=== PATIENT | female | born 1980 | race Caucasian/White ===

== ENCOUNTER 2018-12-29 19:38 | Emergency (ER) | payer SELFPAY ==
[~2018-12-29] VITALS: Ht 160 cm; Wt 64.4 kg
[~2018-12-29 19:38] MED LIST: AZIT250T PO; AZIT500T2 PO; CEPH250T PO; DOXY100T19 PO; GABA-488 PO; METR500T PO; PRD20T PO; QUET100T PO
--- NOTE | 2018-12-29 19:40 | NUR ---
Note kev in EDM - 12/29/18 at 1941 by [id number] LUNG SOUNDS CLEAR BILATERAL. NO RESPIRATORY DISTRESS PRESENT. PATIENT IS SMILING AND COOING AT PARENTS AND RN. FAINT STRIDOR PRESENT IN UPPER AIRWAY.
--- OUTSIDE RECORDS SUMMARY | 2018-12-29 19:50 | XMS REPORT ---
Author Author Sarah Carranza [facility] Address [address] [address] Care Team Providers Care Ferry Terminal Agent Name Role Phone Sarah Carranza PCP Maryan Norman PCP Suzy Mcmahon PCP Assessments SatNov 14 08:00:00 EDT 2018: ALTHOUGH CLIENT WAS MANIC IN HER PRESENTATION SHE WAS COOPERATIVE WITH INTAKE PROCESS. Health Concerns No Known Health Concerns Allergies No Known Allergy Information Encounters Program Name Primary Diagnosis Admission Date/Time Discharge Date/Time PRE ADMIT HUSSEIN SatSep 02 09:20:00 EST 2014 [place] Sep 05 02:01:00 EST 2014 ADMISSION PROGRAM Bipolar disorder, current episode manic without psychotic features, moderate SatNov 14 14:01:00 EDT 2017Dec 24 11:08:00 EDT 2017 Immunizations No Known Immunizations Lab Results No Known Laboratory Results Medical Equipment No Known Medical Equipment Medications No Known Medication Information Treatment Plan Interventions Initial Psychiatric Evaluation, Ongoing medication monitoring and management, Case Conference with multidisciplinary members of the MHC team as indicated, and/or Collaboration and coordination with outside medical providers as indicated by providing the following services: 29439 interactive complexity 62459 psychiatric diagnostic eval w/ meds 88907 30 min psychotherapy add-on 20371 45 [place] [address] 60 min psychotherapy add-on 92425 med injection 29454 New Patient E&M (level 1) 99870 New Patient E&M (level 2) 44394 New Patient E&M (level 3) 47547 New patient E&M (level 4) 07634 New Patient E&M (level 5) 25557 Established Patient E&M (level 1) 81721 Established Patient E&M (level 2) 21148 Established Patient E&M (level 3) 55877 Established Patient E&M (level 4) 50763 Established Patient E&M (level 5) 9935x prolonged service code 19359 case conference w/o clt & fam w/ MD 41800 case conference w/o clt w/ MD H0038 Peer Support Karen ADULT SUPPORTIVE SERVICES BUNDLE - Provide the following services 1- 3 times each week: + H0038 Peer Support Individual + [id number] Peer Support Group + H2017 Psychosocial Rehab Individual + [id number] Psychosocial Adult Group + T1017 TCM - Targeted Case Management + [id number] Attendant Care Non Waiver ADULT CASE MANAGEMENT SERVICE BUNDLE - Provide the following services 1-3 times each week: + [phone] Case Conf w/Clt nn-Physician + [id number] Case Conf w/o clt + family w/MD + 28403 Case Conf no Clt, no MD, w/QMHP + [id number] CPST Adult + [id number] Strength Based Case Mgmt + T1017 TCM - Targeted Case Management Engage with treatment team to build rapport. Learn and practice coping skills to reduce symptoms and improve functioning. The following Services will be utilized 1 - 3 times until goal is reached: Problems Active Concerns* Mental health problem* Code: [id number] * Start Date: SatNov 14 08:00:00 EDT 2017 * Encounter for medication review* Code: [id number] * Start Date: SatNov 14 08:00:00 EDT 2017 Procedures No Known Procedures Social History Social History Observation Description Date Smoking Status Current Every Day Smoker SatNov 14 08:00: 00 EDT 2017 Sex Female SatMay 12 08:00:00 EDT 1979 Vital Signs No Known Vitals
--- OUTSIDE RECORDS SUMMARY | 2018-12-29 19:51 | XMS REPORT ---
Author Author SHON GUZMAN Organization [employer] Address Unknown Phone Unavailable Care Team Providers Care Gang Pusher Name Role Phone SHON GUZMAN CP Unavailable Allergies No Known Allergies Problems Problem Type Condition Code Onset Dates Condition Status Problem Skin lesions L98.9 Active Problem History of drug use F19.21 Active Problem History of ovarian cyst Z87.42 Active Problem Surveillance of implantable subdermal contraceptive Z30.49 Active Assessment Tinea corporis B35.4 Active Medications Medication Code System Code Instructions Start Date End Date Status Dosage Nystatin [facility] [address]-22 202511 UNIT/GM Externally Twice a day Aug 24, 2015 Sep 16, 2015 1 application to affected area Results No Known Results Summary Purpose eClinicalWorks Submission
--- OUTSIDE RECORDS SUMMARY | 2018-12-29 19:51 | XMS REPORT ---
Author Author SHON GUZMAN Organization [employer] Address Unknown Phone Unavailable Care Team Providers Care Lacing String Cutter Name Role Phone SHON GUZMAN CP Unavailable Allergies, Adverse Reactions, Alerts Substance Reaction Event Type Erythromycin Info Not Available Drug Allergy Codeine Phosphate Info Not Available Drug Allergy Latex Info Not Available Non Drug Allergy Problems Problem Type Condition Code Onset Dates Condition Status Problem Skin lesions L98.9 Active Problem History of drug use F19.21 Active Problem History of ovarian cyst Z87.42 Active Assessment Tinea corporis B35.4 Active Assessment Head injury, closed, with concussion, with loss of consciousness of 30 minutes or less, initial encounter S06.0X1A Active Problem Surveillance of implantable subdermal contraceptive Z30.49 Active Assessment Anxiety F41.9 Active Medications Medication Code System Code Instructions Start Date End Date Status Dosage Implanon NDC 0 not defined Nystatin NDC [address]-14 440072 UNIT/GM Externally Twice a day Aug 24, 2015 Sep 03, 2015 1 application to affected area Procedures Procedure Coding System Code Date Office Visit, Est Pt., Level 3 CPT-4 29504 Aug 24, 2015 Vital Signs Date/Time: Aug 24, 2015 Temperature 99.0 F Weight 135.0 lbs Height 63 in BMI 23.91 Index Blood Pressure Diastolic 76 mmHg Blood Pressure Systolic 126 mmHg Cardiac Monitoring Heart Rate 96 bpm Results No Known Results Summary Purpose eClinicalWorks Submission
--- OUTSIDE RECORDS SUMMARY | 2018-12-29 19:51 | XMS REPORT ---
Author Author CACHORRO GTZ [facility] eClinical[employer] Address Unknown Phone Unavailable Care Team Providers Care Service Writer Name Role Phone CACHORRO GTZ CP Unavailable Allergies, Adverse Reactions, Alerts Substance Reaction Event Type Erythromycin Info Not Available Drug Allergy Codeine Phosphate Info Not Available Drug Allergy Latex Info Not Available Non Drug Allergy Problems Problem Type Condition Code Onset Dates Condition Status Problem Skin lesions L98.9 Active Problem History of drug use F19.21 Active Problem History of ovarian cyst Z87.42 Active Assessment Body aches R52 Active Assessment Tobacco dependence F17.200 Active Problem Surveillance of implantable subdermal contraceptive Z30.49 Active Assessment Cough R05 Active Medications Medication Code System Code Instructions Start Date End Date Status Dosage Tessalon Perles [facility] [address]-67 200 mg Orally Three times a day prn cough Sep 13, 2015 Sep 20, 2015 1 capsule Ibuprofen NDC 0 not defined Zofran ODT [facility] [address]-75 4 MG Orally every 8 hrs Sep 09, 2015 1 tablet on the tongue and allow to dissolve Nystatin [facility] [address]-18 935926 UNIT/GM Externally Twice a day Aug 24, 2015 Sep 16, 2015 1 application to affected area Seroquel [facility] [address]-81 50 MG Orally Once a day 1 tablet at bedtime Tums [facility] [address]-06 500 MG Orally Four times a day 1 tablet Doxycycline Hyclate [facility] [address]-25 100 MG Orally every 12 hrs Sep 13, 2015 Sep 23, 2015 1 capsule Implanon ND 0 not defined Procedures Procedure Coding System Code Date INFLUENZA ASSAY W/OPTIC CPT-4 92790 Sep 13, 2015 Office Visit, Est Pt., Level 3 CPT-4 27064 Sep 13, 2015 Vital Signs Date/Time: Sep 13, 2015 Temperature 98.9 F Weight 139.2 lbs Height 63 in BMI 24.66 Index Blood Pressure Diastolic 78 mmHg Blood Pressure Systolic 108 mmHg Cardiac Monitoring Heart Rate 88 bpm Results Name Result Date Reference Range Unit Abnormality Flag INFLUENZA A & B (IN HOUSE) ----Exp date [id number] ----INFLUENZA A negative [id number] ----INFLUENZA B negative [id number] ----Control + [id number] ----Lot # [id number] Summary Purpose eClinicalWorks Submission
--- OUTSIDE RECORDS SUMMARY | 2018-12-29 19:51 | XMS REPORT | Continuity of Care Document ---
Author Author [facility] Organization [facility] Address [address] [place] [address] Phone Unavailable Care Team Providers Care Industrial Commercial Groundskeeper Name Role Phone Physician, No Family PCP Unavailable Insurance Providers Payer Name Policy Number Subscriber Name Relationship [employer] [id number] Jaylyn Sheriff Self / Same As Patient Advance Directives Directive Response Recorded Date/Time Do You Have A Living Will? No 04/17/15 6:30pm Do You Have a DPOA? No 04/17/15 6:30pm Problems No known problems or medical conditions. Medications Medication Dose Route Sig Days/Qty Instructions Order Date Discontinued Date Status Oxycodone HCl/Acetaminophen 1-2 Tablet PO EVERY 4-6 HOURS NEEDED PRN PAIN 15 Qty 04/17/15 Active Ondansetron Hcl 4 Mg PO EVERY 4-6 HOURS NEEDED PRN 14 Qty 04/17/15 Active Social History Social History Problem Response Recorded Date/Time History of Street Drugs? No 04/17/2015 6:32pm Hospital Discharge Instructions No hospital discharge instructions. Plan of Care Discharge Date 04/17/15 10:49pm Disposition HOME, ROUTINE DIS/ASST LIVING Condition at Discharge Stable & Improved Prescriptions See Medications Section Functional Status No functional status results. Allergies, Adverse Reactions, Alerts Allergen Type Severity Reaction Status Last Updated Codeine Allergy Unknown Active 04/17/15 Erythromycin base Allergy Unknown Active 04/17/15 Immunizations No immunization records. Vital Signs Acute Vital Signs Vital Response Date/Time Height (Feet) 5 ft Height (Inches) 3.00 inches Weight (Pounds w/decimal) 132 lbs Temperature (Fahrenheit) 99.0 degrees F (97.6 - 99.5) Pulse Pulse Rate 83 bpm (60 - 100) Respiratory Rate 20 bpm (10 - 24) Oxygen Saturation O2 Sat by Pulse Oximetry 97 % (93 - 100) Blood Pressure 146/86 mm Hg Blood Pressure Mean 105 mm Hg Height 5 ft 3 in Weight 131 lb Body Mass Index 23.0 kg/m^2 Results Test Source Date Result Interp. Ref. Range Comments Trichomonas (Wet Prep) April 17, 2015 8:13pm Negative NEGATIVE Specimen available? Y Clue Cells (Wet Prep) April 17, 2015 8:13pm Positive H NEGATIVE Specimen available? Y Vaginal Yeast (Wet Prep) April 17, 2015 8:13pm Negative NEGATIVE Specimen available? Y Urine Crystals April 17, 2015 7:05pm None seen NONE SEEN Specimen available? Y Urine Trichomonas April 17, 2015 7:05pm None seen /HPF NONE SEEN Specimen available? Y Urine Yeast April 17, 2015 7:05pm None seen /HPF NONE SEEN Specimen available? Y Urine Amorphous Sediment April 17, 2015 7:05pm None seen /HPF NONE SEEN Specimen available? Y Urine Mucus April 17, 2015 7:05pm Many /LPF NONE Specimen available ? Y Urine Bacteria April 17, 2015 7:05pm Few /HPF H NONE SEEN Specimen available? Y Urine Red Blood Cell Casts April 17, 2015 7:05pm None seen /LPF NONE SEEN Specimen available? Y Urine White Blood Cell Casts April 17, 2015 7:05pm None seen /LPF NONE SEEN Specimen available? Y Urine Waxy Casts April 17, 2015 7:05pm None seen /LPF NONE SEEN Specimen available? Y Urine Granular Casts April 17, 2015 7:05pm None seen /LPF NONE SEEN Specimen available? Y Urine Hyaline Casts April 17, 2015 7:05pm None seen /LPF NONE-0-1 Specimen available? Y Urine Epithelial Cells April 17, 2015 7:05pm 0-5 /HPF NONE-<=5/HP Specimen available? Y Urine RBC April 17, 2015 7:05pm 0-2 /HPF NONE-<=2 Specimen available ? Y Urine WBC April 17, 2015 7:05pm 0-5 /HPF NONE-<=5 Specimen available ? Y Urine Urobilinogen April 17, 2015 7:05pm 0.2 mg/dL 0.2-1.0 Specimen available? Y Urine Bilirubin April 17, 2015 7:05pm Negative NEGATIVE Specimen available? Y Urine Leukocyte Esterase April 17, 2015 7:05pm Negative NEGATIVE Specimen available? Y Urine Nitrite April 17, 2015 7:05pm Negative NEGATIVE Specimen available? Y Urine Blood April 17, 2015 7:05pm 1+ H NEGATIVE Specimen available? Y Urine Ketones April 17, 2015 7:05pm Negative mg/dL NEGATIVE Specimen available? Y Urine Glucose April 17, 2015 7:05pm Negative mg/dL NEGATIVE Specimen available? Y Urine Protein April 17, 2015 7:05pm Negative mg/dL NEGATIVE Specimen available? Y Urine pH April 17, 2015 7:05pm 6.0 5.0-8.0 Specimen available? Y Urine Specific [place] April 17, 2015 7:05pm 1.020 Reference Range <=1.005-1.035 Urine Appearance April 17, 2015 7:05pm Clear CLEAR Specimen available? Y Urine Color April 17, 2015 7:05pm Yellow YELLOW Specimen available? Y Bedside Urine Test QC April 17, 2015 7:10pm acceptable () [id number] TESTING PERFORMED BY PERSONNEL OF:[facility] [address] [place] [address] Bedside Urine HCG, Qualitative April 17, 2015 7:10pm Negative () AST/ALT Ratio April 17, 2015 6:36pm 0.821 N 0.10-40.00 XTRA RNG, BLUE Alanine Aminotransferase (ALT/SGPT) April 17, 2015 6:36pm 28 U/L N 6- 29 XTRA RNG, BLUE Aspartate Amino Transf (AST/SGOT) April 17, 2015 6:36pm 23 U/L N 10-30 XTRA RNG, BLUE Alkaline Phosphatase April 17, 2015 6:36pm 90 U/L N 33-115 XTRA RNG, BLUE Lipase April 17, 2015 6:36pm 79 IU/L H 7-60 XTRA RNG, BLUE Total Bilirubin April 17, 2015 6:36pm < 0.2 mg/dL L 0.2-1.2 XTRA RNG, BLUE Corrected Calcium April 17, 2015 6:36pm 9.4 mg/dL N 8.6-10.2-calc XTRA RNG, BLUE Calcium Level April 17, 2015 6:36pm 9.2 mg/dL N 8.6-10.2 XTRA RNG, BLUE Globulin April 17, 2015 6:36pm 2.8 g/dL N 1.9-3.7 XTRA RNG, BLUE Albumin April 17, 2015 6:36pm 4.1 g/dL N 3.6-5.1 XTRA RNG, BLUE Total Protein April 17, 2015 6:36pm 6.9 g/dL N 6.1-8.1 XTRA RNG, BLUE Calculated Osmolality April 17, 2015 6:36pm 289 mOSM/kg N 280-300 XTRA RNG, BLUE Estimated GFR (Cockcroft-Gault) April 17, 2015 6:36pm 78.63 ml/min > 30 Actual body weight used for calculation. BUN/Creatinine Ratio April 17, 2015 6:36pm 16 N 7-25 XTRA RNG, BLUE Estimated GFR () April 17, 2015 6:36pm 90 N >60 Units : mL/min/1.73m2) Estimated GFR (Non- April 17, 2015 6:36pm 77 N >60 Units: mL/min/1.73m2) Creatinine April 17, 2015 6:36pm 0.97 mg/dL N 0.50-1.10 XTRA RNG, BLUE Blood Urea Nitrogen April 17, 2015 6:36pm 16 mg/dL N 7-25 XTRA RNG, BLUE Glucose Level April 17, 2015 6:36pm 102 mg/dL H 65-99 XTRA RNG, BLUE Anion Gap April 17, 2015 6:36pm 14 N 7-17 XTRA RNG, BLUE Carbon Dioxide Level April 17, 2015 6:36pm 23.9 mmol/L N 19.0-30.0 XTRA RNG, BLUE Chloride Level April 17, 2015 6:36pm 101 mmol/L N 98-110 XTRA RNG, BLUE Potassium Level April 17, 2015 6:36pm 4.2 mmol/L N 3.5-5.0 XTRA RNG, BLUE Sodium Level April 17, 2015 6:36pm 139 mmol/L N 135-146 XTRA RNG, BLUE Basophils # April 17, 2015 6:36pm 0.03 1000/uL N 0.00-0.20 XTRA RNG, BLUE Eosinophils # April 17, 2015 6:36pm 0.16 1000/uL N 0.01-0.50 XTRA RNG , BLUE Monocytes # April 17, 2015 6:36pm 0.48 1000/uL N 0.20-0.95 XTRA RNG, BLUE Lymphocytes # April 17, 2015 6:36pm 1.95 1000/uL N 0.85-3.90 XTRA RNG , BLUE Granulocytes # April 17, 2015 6:36pm 3.35 1000/uL N 1.50-7.80 XTRA RNG , BLUE Basophils % April 17, 2015 6:36pm 0.5 % XTRA RNG, BLUE Eosinophils % April 17, 2015 6:36pm 2.7 % XTRA RNG, BLUE Monocytes % April 17, 2015 6:36pm 8.0 % XTRA RNG, BLUE Lymphocytes % April 17, 2015 6:36pm 32.7 % XTRA RNG, BLUE Granulocytes (%) April 17, 2015 6:36pm 56.1 % XTRA RNG, BLUE Mean Platelet Volume April 17, 2015 6:36pm 9.6 fL N 8.7-11.9 XTRA RNG , BLUE Platelet Count April 17, 2015 6:36pm 234 1000/cmm N 140-400 XTRA RNG, BLUE Red Cell Distribution Width April 17, 2015 6:36pm 14.8 % N 11.0-15.0 XTRA RNG, BLUE Mean Corpuscular Hemoglobin Concent April 17, 2015 6:36pm 34 g/dL N 32- 36 XTRA RNG, BLUE Mean Corpuscular Hemoglobin April 17, 2015 6:36pm 28 pg N 27-33 XTRA RNG, BLUE Mean Corpuscular Volume April 17, 2015 6:36pm 84 fL N 80-100 XTRA RNG , BLUE Hematocrit April 17, 2015 6:36pm 34.7 % L 35.0-45.0 XTRA RNG, BLUE Hemoglobin April 17, 2015 6:36pm 11.7 g/dL N 11.7-15.5 XTRA RNG, BLUE Red Blood Count April 17, 2015 6:36pm 4.12 MIL/uL N 3.80-5.10 XTRA RNG , BLUE White Blood Count April 17, 2015 6:36pm 6.0 1000/cmm N 3.8-10.8 XTRA RNG, JAZZ Procedures Procedure Status Date Provider(s) US pelvis completed 04/17/15 Luis Carlos Mae MD Encounters Encounter Location Date/Time Departed Emergency Room [facility] 04/17/15 6:30pm
--- OUTSIDE RECORDS SUMMARY | 2018-12-29 19:51 | XMS REPORT ---
Author Author JASMYNE PRUETT [facility] eClinicalWorks Address Unknown Phone Unavailable Care Team Providers Care Supervisor Electronic Coils Name Role Phone JASMYNE PRUETT CP Unavailable Allergies, Adverse Reactions, Alerts Substance Reaction Event Type Erythromycin Info Not Available Drug Allergy Codeine Phosphate Info Not Available Drug Allergy Latex Info Not Available Non Drug Allergy Problems Problem Type Condition Code Onset Dates Condition Status Problem Skin lesions L98.9 Active Problem History of drug use F19.21 Active Problem History of ovarian cyst Z87.42 Active Assessment Acute gastritis without bleeding K29.00 Active Problem Surveillance of implantable subdermal contraceptive Z30.49 Active Assessment Pharyngitis J02.9 Active Medications Medication Code System Code Instructions Start Date End Date Status Dosage Tums [facility] [address]-86 500 MG Orally Four times a day 1 tablet Seroquel [facility] [address]-40 50 MG Orally Once a day 1 tablet at bedtime Nystatin [facility] [address]-95 072663 UNIT/GM Externally Twice a day Aug 24, 2015 Sep 16, 2015 1 application to affected area Promethazine HCl [facility] [address]-01 12.5 MG Orally every 6 hrs Sep 08, 2015 Sep 13, 2015 1 tablet as needed Implanon [facility] 0 not defined Procedures Procedure Coding System Code Date PHENERGAN (IM) 12.5 MG (25 MG/ML) CPT-4 J2550 Sep 08, 2015 THER/PROPH/DIAG INJ, SC/IM CPT-4 96877 Sep 08, 2015 STREP A ASSAY W/OPTIC CPT-4 98567 Sep 08, 2015 Office Visit, Est Pt., Level 3 CPT-4 19409 Sep 08, 2015 Vital Signs Date/Time: Sep 08, 2015 Temperature 98.6 F Weight 133.8 lbs Height 63 in BMI 23.70 Index Blood Pressure Diastolic 70 mmHg Blood Pressure Systolic 120 mmHg Cardiac Monitoring Heart Rate 98 bpm Results Name Result Date Reference Range Unit Abnormality Flag STREP A (IN HOUSE) ----STREP A negative [id number] ----Control + [id number] ----Lot # [id number] ----Exp date [id number] Summary Purpose eClinicalWorks Submission
--- OUTSIDE RECORDS SUMMARY | 2018-12-29 19:51 | XMS REPORT ---
Author Author KYRA ARELLANO [facility] Address [address] [address] Care Team Providers Care Paint Line Supervisor Name Role Phone KYRA ARELLANO Unavailable BLAKEAUDRA MEI Unavailable VALENTIN CHADWICK Unavailable JAI ROC Unavailable Problems Problem SNOMED Onset Date Resolved Date Status Mental health problem 594234979 Active Drug therapy finding [id number] Active Allergies, Adverse Reactions NA Care Plan Goal Instructions Client will be functioning more independently with supports and have a life worth living. Engage with treatment team to build rapport. Learn and practice coping skills to reduce symptoms and improve functioning. The following Services will be utilized 1 - 3 times until goal is reached: Improve and maintain functioning through medical psychiatric services. Initial Psychiatric Evaluation, Ongoing medication monitoring and management , Case Conference with multidisciplinary members of the MHC team as indicated, and/or Collaboration and coordination with outside medical providers as indicated by providing the following services: 34544 interactive complexity 50810 psychiatric diagnostic eval w/ meds 40754 30 min psychotherapy add-on 23585 45 [place] [address] 60 min psychotherapy add-on 70842 med injection 90078 New Patient E&M (level 1) 73843 New Patient E&M (level 2) 66267 New Patient E&M (level 3) 49640 New patient E&M (level 4) 90745 New Patient E&M (level 5) 09636 Established Patient E&M (level 1) 26705 Established Patient E&M (level 2) 30914 Established Patient E&M (level 3) 48822 Established Patient E&M (level 4) 49099 Established Patient E&M (level 5 ) 9935x prolonged service code 95154 case conference w/o clt & fam w/ 77480 case conference w/o clt w/ H0038 Peer Support Karen Medications NA Lab Results NA Encounters Date Time Service Code Provider 09:20:00 am KYRA ADAME 01:01:00 pm AUDRA MEI 11:23:00 am AUDRA MEI Family History Functional Status NA Immunizations NA Vital Signs NA Social History Date Smoking Status SNOMED Code Current Every Day Smoker [id number] Hospital Discharge Instructions NA Instructions NA Procedures Date Procedure Code Type Code Provider Purpose Electronic Copy
--- OUTSIDE RECORDS SUMMARY | 2018-12-29 19:51 | XMS REPORT ---
Author Author JASMYNE PRUETT Organization eClinicalWorks Address Unknown Phone Unavailable Care Team Providers Care Pattern Generator Operator Name Role Phone JASMYNE PRUETT Unavailable Allergies No Known Allergies Problems Problem Type Condition Code Onset Dates Condition Status Problem Skin lesions L98.9 Active Problem History of drug use F19.21 Active Problem History of ovarian cyst Z87.42 Active Problem Surveillance of implantable subdermal contraceptive Z30.49 Active Medications Medication Code System Code Instructions Start Date End Date Status Dosage Zofran ODT [facility] [address]-42 4 MG Orally every 8 hrs Sep 09, 2015 1 tablet on the tongue and allow to dissolve Results No Known Results Summary Purpose eClinicalWorks Submission
--- OUTSIDE RECORDS SUMMARY | 2018-12-29 19:51 | XMS REPORT ---
Author Author JAUN BARRIOS Organization eClinicalWorks Address Unknown Phone Unavailable Care Team Providers Care Freezing Machine Operator Name Role Phone JAUN BARRIOS CP Unavailable Allergies, Adverse Reactions, Alerts Substance [...] of implantable subdermal contraceptive Z30.49 Active Assessment Gastritis K29.70 Active Medications Medication Code System Code Instructions Start Date End Date Status Dosage Implanon NDC 0 not defined Protonix [facility] [address]-24 40 MG Orally Once a day Sep 26, 2015 1 tablet Ibuprofen NDC 0 not defined Seroquel [facility] [address]-98 50 MG Orally Once a day 1 tablet at bedtime Tums [facility] [address]-01 500 MG Orally Four times a day 1 tablet Procedures Procedure Coding System Code Date Office Visit, Est Pt., Level 3 CPT-4 80486 Sep 26, 2015 Vital Signs Date/Time: Sep 26, 2015 Temperature 97.8 F Weight 141.0 lbs Height 63 in BMI 24.97 Index Blood Pressure Diastolic 100 mmHg Blood Pressure Systolic 150 mmHg Cardiac Monitoring Heart Rate 88 bpm Results No Known Results Summary Purpose eClinicalWorks Submission
--- OUTSIDE RECORDS SUMMARY | 2018-12-29 19:51 | XMS REPORT | Continuity of Care Document ---
Author Organization Unknown Address Unknown Allergies Active Description Code Type Severity Reaction Onset Reported/Identified Relationship to Patient Clinical Status Yes Penicillins 476 Unknown N/A 09/02/1999 Yes ENVIRONMENTAL ENVIRONMENTAL Mild N/A 12/14/2013 Yes codeine [id number] Drug Allergy Unknown N/A 04/17/2015 Yes erythromycin base [id number] Drug Allergy Unknown N/A 04/17/2015 Medications There is no data. Problems Date Dx Coded Attending Type Code Diagnosis Diagnosed By 12/14/2013 BOYD ARITA SOFTWARE PROJECT LEAD Ot 616.10 12/14/2013 BOYD ARITA SOFTWARE PROJECT LEAD Ot 640.03 12/14/2013 BOYD ARITA SOFTWARE PROJECT LEAD Ot 646.63 12/14/2013 BOYD ARITA SOFTWARE PROJECT LEAD Ot 649.53 05/24/2015 JOSUÉ GONCALVES S 305.1 TOBACCO USE DISORDER 05/24/2015 JOSUÉ GONCALVES P 789.00 ABDOMINAL PAIN, UNSPECIFIED SITE 09/20/2015 SHON GUZMAN SOFTWARE PROJECT LEAD Ot S06.0X1A 09/20/2015 SHON GUZMAN SOFTWARE PROJECT LEAD Ot X58.XXXA 09/20/2015 SHON GUZMAN SOFTWARE PROJECT LEAD Ot Y99.8 Procedures There is no data. Results There is no data. Encounters ACCT No. Visit Date/Time Discharge Status Pt. Type Provider Facility Loc./Unit Complaint [id number] 05/07/2015 11:48:00 ACT Unknown JOSUÉ GONCALVES [facility] NSER VAGINAL BLEED [id number] 11/02/2015 17:09:00 11/02/2015 20:06:00 DIS Emergency BOYD ARITA APRN [facility] ER [id number] 09/06/2015 13:20:00 09/06/2015 23:59:59 CLS Outpatient SHON GUZMAN APRN [facility] RAD [id number] 12/14/2013 19:21:00 12/14/2013 21:51:00 DIS Emergency BOYD ARITA APRN [facility] ER [id number] 04/25/2015 19:07:00 04/25/2015 23:59:59 CLS Outpatient Faizan, [facility] [id number] 04/17/2015 18:30:00 04/17/2015 22:49:00 DIS Emergency Tu HUERTA, [facility] ER
--- OUTSIDE RECORDS SUMMARY | 2018-12-29 19:51 | XMS REPORT ---
Author Author DEON AVALOS [facility] eClinical[employer] Address Unknown Phone Unavailable Care Team Providers Care Rn Iv Therapy Name Role Phone DEON AVALOS CP Unavailable Allergies, Adverse Reactions, Alerts Substance Reaction Event Type Erythromycin Info Not Available Drug Allergy Codeine Phosphate Info Not Available Drug Allergy Latex Info Not Available Non Drug Allergy Problems Problem Type Condition Code Onset Dates Condition Status Assessment Unprotected sexual intercourse Z72.51 Active Assessment Skin lesions L98.9 Active Assessment History of drug use F19.21 Active Assessment H/O nipple discharge Z87.898 Active Assessment Surveillance of implantable subdermal contraceptive Z30.49 Active Problem Skin lesions L98.9 Active Problem History of drug use F19.21 Active Problem History of ovarian cyst Z87.42 Active Assessment Routine screening for STI (sexually transmitted infection) Z11.3 Active Assessment History of ovarian cyst Z87.42 Active Problem Surveillance of implantable subdermal contraceptive Z30.49 Active Assessment Irregular menses N92.6 Active Medications Medication Code System Code Instructions Start Date End Date Status Dosage Implanon NDC 0 not defined Procedures Procedure Coding System Code Date TRICHOMONAS ASSAY W/OPTIC CPT-4 76538 Aug 24, 2015 CULTURE, BACTERIA, OTHER CPT-4 81471 Aug 24, 2015 No Charge CPT-4 88109 Aug 24, 2015 COMPLETE CBC W/AUTO DIFF WBC CPT-4 02964 Aug 24, 2015 URINE TEST CPT-4 51029 Aug 24, 2015 Office Visit, New Pt., Level 4 CPT-4 04000 Aug 24, 2015 Vital Signs Date/Time: Aug 24, 2015 Temperature 99.0 F Weight 135.0 lbs Height 63 in BMI 23.91 Index Blood Pressure Diastolic 78 mmHg Blood Pressure Systolic 128 mmHg Cardiac Monitoring Heart Rate 96 bpm Results Name Result Date Reference Range Unit Abnormality Flag TEST, URINE (IN HOUSE) ----RESULTS negative [id number] ----Lot # [id number] ----Control + [id number] ----Exp date [id number] Summary Purpose eClinicalWorks Submission
[2018-12-29] MEDS ORDERED: hydrOXYzine (VISTARIL) 25 MG capsule/tablet PO ONE (20:15)
[2018-12-29 20:29] LABS: BASOPHILS % (AUTO) 0 % (0-10); EOSINOPHILS # (AUTO) 0.2 10^3/uL (0.0-0.3); EOSINOPHILS % (AUTO) 3 % (0-10); HEMATOCRIT 41 % (35-52); HEMOGLOBIN 13.7 G/DL (11.5-16.0); LYMPHOCYTES # (AUTO) 2.5 X 10^3 (1.0-4.0); LYMPHOCYTES % (AUTO) 34 % (12-44); MEAN CORPUSCULAR HEMOGLOBIN 29 PG (25-34); MEAN CORPUSCULAR HGB CONC 33 G/DL (32-36); MEAN CORPUSCULAR VOLUME 88 FL (80-99); MONOCYTES # (AUTO) 0.8 X 10^3 (0.0-1.0); MONOCYTES % (AUTO) 11 % (0-12); NEUTROPHILS # (AUTO) 3.9 X 10^3 (1.8-7.8); NEUTROPHILS % (AUTO) 52 % (42-75); PLATELET COUNT 262 10^3/uL (130-400); RED CELL DISTRIBUTION WIDTH 13.9 % (10.0-14.5); WHITE BLOOD COUNT 7.5 10^3/uL (4.3-11.0)
[2018-12-29 20:31] LABS: BILIRUBIN,URINE NEGATIVE (NEGATIVE); CLARITY,URINE VERY CLOUDY; COLOR,URINE YELLOW; GLUCOSE, URINE (UA) NEGATIVE (NEGATIVE); KETONES,URINE NEGATIVE (NEGATIVE); LEUKOCYTE ESTERASE ,URINE 3+ (NEGATIVE); NITRITE,URINE NEGATIVE (NEGATIVE); PH,URINE 6 (5-9); PROTEIN,URINE NEGATIVE (NEGATIVE); UROBILINOGEN,URINE NORMAL (NORMAL)
[2018-12-29 20:45] LABS: BACTERIA,URINE FEW /HPF; TRICHOMONAS,URINE FEW /HPF; WBC,URINE 50-100 /HPF
[2018-12-29 20:51] LABS: ALANINE AMINOTRANSFERASE 15 U/L (0-55); ALBUMIN 4.3 GM/DL (3.2-4.5); ALKALINE PHOSPHATASE 80 U/L (40-136); BILIRUBIN,TOTAL 0.2 MG/DL (0.1-1.0); BUN/CREATININE RATIO 13; CALCIUM 10.2 MG/DL (8.5-10.1); CARBON DIOXIDE 22 MMOL/L (21-32); CHLORIDE 107 MMOL/L (98-107); CREATININE SERUM 0.78 MG/DL (0.60-1.30); GFR ESTIMATED > 60; GLUCOSE 87 MG/DL (70-105); POTASSIUM 4.3 MMOL/L (3.6-5.0); SODIUM 143 MMOL/L (135-145); TOTAL PROTEIN 7.7 GM/DL (6.4-8.2)
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
--- NOTE | 2018-12-29 20:53 | NUR ---
Report given to Edmond HERRERA
[2018-12-29 20:54] LABS: AMPHETAMINE SCREEN, URINE NEGATIVE (NEGATIVE); BARBITURATE SCREEN URINE NEGATIVE (NEGATIVE); BENZODIAZEPINES SCREEN URINE NEGATIVE (NEGATIVE); CANNABINOID SCREEN, URINE NEGATIVE (NEGATIVE); COCAINE SCREEN URINE NEGATIVE (NEGATIVE); METHADONE STAT NEGATIVE (NEGATIVE); METHAMPHETAMINE SCREEN URINE S NEGATIVE (NEGATIVE); OPIATE SCREEN URINE NEGATIVE (NEGATIVE); OXYCODONE STAT NEGATIVE (NEGATIVE); PROPOXYPHENE STAT NEGATIVE (NEGATIVE); TRICYCLIC ANTIDEPRESSANTS SCRE NEGATIVE (NEGATIVE)
[2018-12-29] MEDS ORDERED: metroNIDAZOLE 500 MG (FLAGYL) TAB PO ONE (21:15)
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
[2018-12-29] MEDS ORDERED: HYDR25CA PO (21:30)
[2018-12-29] MEDS ORDERED: NITR-65 PO (21:30)
[2018-12-29 21:46] VITALS: BP 135/80
== END 2018-12-29 21:49 | disposition home or self-care (01) ==
LOC: EDUNIT# 19:38 → ER 19:39
DX: R51 Headache (principal); N39.0 Urinary tract infection, site not specified; A59.9 Trichomoniasis, unspecified; F41.9 Anxiety disorder, unspecified; F32.9 Major depressive disorder, single episode, unspecified; F17.210 Nicotine dependence, cigarettes, uncomplicated; Z87.820 Personal history of traumatic brain injury; Z79.52 Long term (current) use of systemic steroids; Z98.890 Other specified postprocedural states
CPT/HCPCS: 36415; 70450; 80053; 80306; 81000; 85025; 87088

== ENCOUNTER 2019-04-30 12:01 | Emergency (ER) | payer OTHER ==
[~2019-04-30] VITALS: Ht 160 cm; Wt 62.1 kg
[~2019-04-30 12:01] MED LIST changes: +HYDR25CA PO; +NITR-65 PO
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
--- NOTE | 2019-04-30 12:33 | NUR ---
Patient refused to give urine sample for u-preg.
[2019-04-30] MEDS: ALPRAZolam 1 MG (XANAX) TAB PO ONE (12:38)
[2019-04-30 12:43] VITALS: BP 114/76
[2019-04-30] MEDS: ALPRAZolam 0.5 MG (XANAX) TAB ONE (12:43)
== END 2019-04-30 12:43 | disposition home or self-care (01) ==
LOC: EDUNIT# 12:01 → ER FS 12:03
DX: R42 Dizziness and giddiness (principal); F41.9 Anxiety disorder, unspecified; F32.9 Major depressive disorder, single episode, unspecified; Z88.8 Allergy status to other drugs, medicaments and biological substances; Z77.22 Contact with and (suspected) exposure to environmental tobacco smoke (acute) (chronic); Z87.820 Personal history of traumatic brain injury
CPT/HCPCS: 93005

== ENCOUNTER 2021-02-26 11:43 | Emergency (ER) | payer SELFPAY ==
[~2021-02-26] VITALS: Ht 165 cm; Wt 66.0 kg
[~2021-02-26 11:43] MED LIST changes: -DOXY100T19 PO; +DOXY100T31 PO
[2021-02-26] MEDS ORDERED: D-ME118S33 PO ×2 (11:58→12:46)
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
--- NOTE | 2021-02-26 12:51 | Diagnostic Imaging Report ---
CHEST 1 VIEW, AP/PA ONLY Indication: Cough and fever Comparison: 11/02/2015 Findings: No focal airspace disease in the visualized lungs. Please note that the posterior lower lobes are poorly evaluated by portable radiography. No pleural effusion or pneumothorax. Normal cardiomediastinal silhouette. Impression: 1. No acute cardiopulmonary process by portable radiography. Dictated by: Dictated on workstation # [id number]
[2021-02-26 12:56] VITALS: BP 128/79
== END 2021-02-26 12:56 | disposition home or self-care (01) ==
LOC: EDUNIT# 11:43 → ER 11:45
DX: U07.1 COVID-19 (principal); F41.9 Anxiety disorder, unspecified; F32.9 Major depressive disorder, single episode, unspecified; Z87.820 Personal history of traumatic brain injury; Z77.22 Contact with and (suspected) exposure to environmental tobacco smoke (acute) (chronic); Z79.52 Long term (current) use of systemic steroids; Z79.899 Other long term (current) drug therapy
CPT/HCPCS: 71045; 87636

== ENCOUNTER 2021-03-03 12:47 | Emergency (ER) | payer SELFPAY ==
[~2021-03-03 12:47] MED LIST changes: +D-ME118S33 PO
== END 2021-03-03 13:36 | disposition left against medical advice (07) ==
LOC: EDUNIT# 12:47 → ER 12:49
DX: U07.1 COVID-19 (principal); F41.9 Anxiety disorder, unspecified

== ENCOUNTER 2021-03-29 14:55 | Emergency (ER) | payer SELFPAY ==
[~2021-03-29] VITALS: Ht 160 cm; Wt 64.4 kg
[2021-03-29 15:18] VITALS: BP 150/95
[2021-03-29] MEDS ORDERED: NS IV 1000 ML 1,000 ML IV STA (15:39)
[2021-03-29] MEDS ORDERED: HYDR-3781 PO (16:09)
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
== END 2021-03-29 16:10 | disposition left against medical advice (07) ==
LOC: EDUNIT# 14:55 → ER FS 14:57
DX: T67.5XXA Heat exhaustion, unspecified, initial encounter (principal); F41.9 Anxiety disorder, unspecified; F17.210 Nicotine dependence, cigarettes, uncomplicated; Z79.899 Other long term (current) drug therapy
CPT/HCPCS: 99282

== ENCOUNTER 2022-01-23 19:55 | Emergency (ER) | payer OTHER ==
[~2022-01-23] VITALS: Ht 160 cm; Wt 62.1 kg
[~2022-01-23 19:55] MED LIST changes: +HYDR-3781 PO
[2022-01-23] MEDS ORDERED: ACETAMINOPHEN 500 MG TAB (TYLENOL) PO STA (20:33)
[2022-01-23] MEDS ORDERED: ONDANSETRON 4 MG (ZOFRAN) ORAL DISSOLVE TAB PO STA (20:33)
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
--- NOTE | 2022-01-23 20:45 | Diagnostic Imaging Report ---
EXAMINATION: CT head without contrast. TECHNIQUE: Multiple contiguous axial images were obtained through the brain without the use of intravenous contrast. All CT scans use one or more of the following dose optimizing techniques: automated exposure control, MA and/or KvP adjustment based on patient size and exam type or iterative reconstruction. HISTORY: Head pain after injury COMPARISON: 12/29/2018 FINDINGS: Mildly decreased sulcation within the bilateral temporal lobes. Chronic appearing encephalomalacia of the bilateral inferior and frontal temporal lobes. Mild likely chronic encephalomalacia of the medial frontal lobes. No acute intracranial hemorrhage or abnormal extra-axial fluid collections are present. No hyperdense vessel. The calvarium is intact. The mastoid air cells are clear. The visualized paranasal sinuses are clear. The orbits are normal. IMPRESSION: 1. No acute intracranial abnormality. 2. Chronic appearing encephalomalacia within the bilateral frontal and temporal lobes. This may be secondary to history of prior traumatic brain injury. Dictated by: Dictated on workstation # [id number]
[2022-01-23 21:08] VITALS: BP 120/93
== END 2022-01-23 21:09 | disposition home or self-care (01) ==
LOC: EDUNIT# 19:55 → ER FS 19:58
DX: S09.90XA Unspecified injury of head, initial encounter (principal); F17.210 Nicotine dependence, cigarettes, uncomplicated; Z87.820 Personal history of traumatic brain injury; W22.8XXA Striking against or struck by other objects, initial encounter; Y92.143 Cell of prison as the place of occurrence of the external cause
CPT/HCPCS: 70450